=== PATIENT | female | born 1985 | race Hispanic/Latino ===

== ENCOUNTER 2017-12-07 22:14 | Emergency (ER) | payer SELFPAY ==
[2017-12-07] MEDS ORDERED: FLUORESCEIN SODIUM 0.6 MG/WRAP ONE (23:06)
[2017-12-07] MEDS ORDERED: GENTAMICIN 0.3% OPTH DROP 5ML ONE (23:07)
[2017-12-07] MEDS ORDERED: TETRACAINE HCL 0.5% 2ML OPTH ONE (23:10)
--- NOTE | 2017-12-07 23:22 | EDPHYS ---
Physician Documentation [facility] Name: Tessie Cohen Age: 32 yrs Sex: Female : 1985 Arrival Date: 12/07/2017 Time: 22:15 Bed 14 Private MD: ED Physician Elvin Payne HPI: 12/07 22:45 This 32 yrs old Female presents to ER via Ambulatory with complaints of cp Drainage From Eye, Eye Swelling. 22:45 The patient is experiencing matting or discharge, pain, drainage, to the right eye, cp caused by daughter recently diagnosed with conjunctivitis. Onset: The symptoms/episode began/occurred this morning. Duration: the symptoms are continuous. Associated signs and symptoms: Pertinent negatives: ear ache, fever, headache. Patient does not utilize any form of vision correction. Severity of symptoms: in the emergency department the symptoms are unchanged. 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 - Social history:: Smoking status: Patient/guardian denies using tobacco. - Ebola Screening: : No symptoms or risks identified at this time. ROS: 22:50 Constitutional: Negative for body aches, chills, fever, poor PO intake. cp 22:50 ENT: Negative for injury, pain, and discharge. cp 22:50 Eyes: Positive for discharge, foreign body sensation, itching, matting, pain, swelling, of the right eye. 22:50 Cardiovascular: Negative for chest pain, palpitations. 22:50 Respiratory: Negative for cough, shortness of breath, wheezing. 22:50 Skin: Negative for cellulitis, rash. 22:50 All other systems are negative. Exam: 23:05 Visual Acuity: I have reviewed the nursing documentation. cp 23:05 Constitutional: This is a well developed, well nourished patient who is awake, alert, cp and in no acute distress. Head/Face: Normocephalic, atraumatic. 23:05 Eyes: Pupils: equal, round, and reactive to light and accomodation, Extraocular movements: intact throughout, Conjunctiva: mild erythema right eye. Corneas: abrasion, is not appreciated, foreign body, is not appreciated, a fluorescein strip employed to appreciate the findings, Lids and lashes: drainage, from the right eye, mild swelling noted both right upper and lower lids. 23:05 ENT: External ear(s): are unremarkable, Ear canal(s): are normal, clear, TM's: bulging, is not appreciated, bilaterally, dullness, bilaterally, erythema, is not appreciated, bilaterally, Nose: is normal, Mouth: Lips: moist, Oral mucosa: pink and intact, moist, Posterior pharynx: is normal, airway is patent, no erythema, no exudate, Voice: is normal. 23:05 Neck: ROM/movement: is normal, is supple, without pain, no range of motions limitations, no meningismus, no nuchal rigidity, Lymph nodes: no appreciated lymphadenopathy. 23:05 Chest/axilla: Inspection: normal, Palpation: is normal, no crepitus, no tenderness. 23:05 Cardiovascular: Rate: normal, Rhythm: regular. 23:05 Respiratory: the patient does not display signs of respiratory distress, Respirations: normal, Breath sounds: are clear throughout, no decreased breath sounds, no stridor, no wheezing. 23:05 Skin: cellulitis, is not appreciated, no rash present. Vital Signs: 22:37 BP 123 / 72; Pulse 88; Resp 18; Temp 97.8(TE); Pulse Ox 98% on R/A; Weight 77.11 kg; ea Height 5 ft. 3 in. (160.02 cm); Pain 6/10; 22:37 Body Mass Index 30.11 (77.11 kg, 160.02 cm) ea Visual Acuity: 23:12 Left Eye Visual acuity 20/25, Pupil size 4 mm, ; Right Eye Visual acuity 20/70, Pupil bb size 4 mm, ; Both Eyes Visual acuity 20/20; Without Lenses; MDM: 22:27 Patient medically screened. cp 23:20 Data reviewed: vital signs, nurses notes. cp 23:20 Differential diagnosis: Corneal abrasion of Foreign body in Response to treatment: the cp patient's symptoms have mildly improved after treatment, and as a result, I will discharge patient. 12/07 22:42 Order name: Visual Acuity; Complete Time: 23:02 12/07 22:53 Order name: Eye Tray; Complete Time: 23:24 cp 12/07 22:53 Order name: Fluoresene Opth strip; Complete Time: 23:24 cp Administered Medications: 23:34 Drug: Gentamicin Drops 0.3 % 2 drops Route: Ophthalmic; Site: right eye; ea 23:38 Follow up: Response: No adverse reaction ea Disposition: 12/07/17 23:22 Discharged to Home. Impression: Conjunctivitis - Right Eye. - Condition is Stable. - Discharge Instructions: Conjunctivitis (Viral and Bacterial). - Prescriptions for Gentamicin 0.3 % Ophthalmic Drops - instill 1 drop by OPHTHALMIC route every 4 hours for 7 days; 1 bottle. - Work release form, Medication Reconciliation Form, Thank You Letter, Antibiotic Education, Prescription Opioid Use form. - Follow up: Karely Jang MD; When: Tomorrow; Reason: Recheck today's complaints. Follow up: Karely Jang MD; When: 2 - 3 days; Reason: Recheck today's complaints. - Problem is new. - Symptoms have improved. Addendum: 12/11/2017 09:58 Co-signature as Attending Physician, Elvin Payne MD I agree with the assessment and c ponce plan of care. Signatures: Elvin Payne MD MD cha Page, Corey, PA PA cp Antunez, Elena, RN RN ea Corrections: (The following items were deleted from the chart) 12/07 23:38 23:22 12/07/2017 23:22 Discharged to Home. Impression: Conjunctivitis - Right Eye. ea Condition is Stable. Prescriptions for Gentamicin 0.3 % Ophthalmic Drops - instill 1 drop by OPHTHALMIC route every 4 hours for 7 days; 1 bottle. and Forms are Medication Reconciliation Form, Thank You Letter, Antibiotic Education, Prescription Opioid Use. Follow up: Karely Jang; When: 2 - 3 days; Reason: Recheck today's complaints. Problem is new. Symptoms have improved. cp
--- NOTE | 2017-12-07 23:22 | ER ---
Nurse's Notes [facility] Name: Tessie Cohen Age: 32 yrs Sex: Female : 1985 Arrival Date: 12/07/2017 Time: 22:15 Bed 14 Private MD: Diagnosis: Conjunctivitis-Right Eye Presentation: 12/07 22:34 Presenting complaint: Patient states: This morning she noticed her eye was swollen and ea had green crusty discharge. States " It go more painful and throughout the day it just got worse" Reported that her daughter had pink eye earlier this week. Transition of care: patient was not received from another setting of care. Onset of symptoms was December 07, 2017. Risk Assessment: Do you want to hurt yourself or someone else? Patient reports no desire to harm self or others. Initial Sepsis Screen: Does the patient meet any 2 criteria? No. Patient's initial sepsis screen is negative. Does the patient have a suspected source of infection? No. Patient's initial sepsis screen is negative. Care prior to arrival: None. 22:34 Method Of Arrival: Ambulatory ea 22:34 Acuity: WOO 5 ea Triage Assessment: 22:37 General: Appears uncomfortable, Behavior is calm, cooperative, appropriate for age. ea Pain: Complains of pain in right eye. 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 - Social history:: Smoking status: Patient/guardian denies using tobacco. - Ebola Screening: : No symptoms or risks identified at this time. Screenin:45 Abuse screen: Denies threats or abuse. Nutritional screening: No deficits noted. ea Tuberculosis screening: No symptoms or risk factors identified. Fall Risk None identified. Assessment: 23:37 Reassessment: Patient and/or family updated on plan of care and expected duration. Pain ea level reassessed. Patient is alert, oriented x 3, equal unlabored respirations, skin warm/dry/pink. Discharge instructions given to patient, verbalized the understanding of instruction. Patient states feeling better. Patient states symptoms have improved. Vital Signs: 22:37 BP 123 / 72; Pulse 88; Resp 18; Temp 97.8(TE); Pulse Ox 98% on R/A; Weight 77.11 kg; ea Height 5 ft. 3 in. (160.02 cm); Pain 6/10; 22:37 Body Mass Index 30.11 (77.11 kg, 160.02 cm) ea Visual Acuity: 23:12 Left Eye Visual acuity 20/25, Pupil size 4 mm, ; Right Eye Visual acuity 20/70, Pupil bb size 4 mm, ; Both Eyes Visual acuity 20/20; Without Lenses; ED Course: 22:15 Patient arrived in ED. am2 22:27 Elvin Shaw PA is PHCP. cp 22:27 Elvin Payne MD is Attending Physician. cp 22:34 Giselle Trevino RN is Primary Nurse. ea 22:36 Triage completed. ea 22:41 Elvin Shaw PA is PHCP. cp 22:41 Elvin Payne MD is Attending Physician. cp 22:46 Patient has correct armband on for positive identification. Bed in low position. Call ea light in reach. Side rails up X 1. 22:46 Arm band placed on right wrist. Patient placed in an exam room. ea 23:21 Karely Jang MD is Referral Physician. cp 23:21 Referral Physician role handed off by Karely Jnag MD cp 23:21 Karely Jang MD is Referral Physician. cp 23:36 No provider procedures requiring assistance completed. No provider procedures requiring ea assistance completed. Assist provider with eye exam of right eye. using slit lamp, Performed by Elvin COFFEY Patient tolerated well. Patient did not have IV access during this emergency room visit. Administered Medications: 23:34 Drug: Gentamicin Drops 0.3 % 2 drops Route: Ophthalmic; Site: right eye; ea 23:38 Follow up: Response: No adverse reaction ea Outcome: 23:22 Discharge ordered by . cp 23:36 Discharged to home ambulatory. ea 23:36 Condition: improved 23:36 Discharge instructions given to patient, Instructed on discharge instructions, follow up and referral plans. medication usage, Demonstrated understanding of instructions, follow-up care, medications, Prescriptions given X 1. 23:38 Patient left the ED. ea Signatures: Ashley Serrano RN RN bb Page, Corey, PA PA cp Moreno, Amanda am2 Giselle Trevino, RN RN ea
[2017-12-08 00:31] VITALS: BP 123/72; TEMP 97.8; O2SAT 98
== END 2017-12-07 23:38 | disposition home or self-care (01) ==
LOC: ER 22:14
DX: H10.9 Unspecified conjunctivitis (principal)
CPT/HCPCS: 99283

== ENCOUNTER 2018-01-15 12:25 | Emergency (ER) | payer SELFPAY ==
--- NOTE | 2018-01-15 15:01 | EDPHYS ---
Physician Documentation [facility] Name: Tessie Cohen Age: 32 yrs Sex: Female : 1985 Arrival Date: 01/15/2018 Time: 12:27 Bed 11 Private MD: None, None ED Physician Elvin Payne HPI: 01/15 16:31 This 32 yrs old Female presents to ER via Ambulatory with complaints of Sinus snw Congestion, Non-Productive Cough. 16:31 The patient or guardian reports cough, described as moderate. Onset: The snw symptoms/episode began/occurred suddenly, 2 week(s) ago, and became persistent. Severity of symptoms: At their worst the symptoms were moderate. Associated signs and symptoms: Pertinent positives: rhinorrhea. The patient has not experienced similar symptoms in the past. The patient has not recently seen a physician. 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 - Social history:: Smoking status: Patient/guardian denies using tobacco. - Ebola Screening: : No symptoms or risks identified at this time. ROS: 16:32 Eyes: Negative for injury, pain, redness, and discharge. snw 16:32 Neck: Negative for injury, pain, and swelling, Cardiovascular: Negative for chest pain, palpitations, and edema, Abdomen/GI: Negative for abdominal pain, nausea, vomiting, diarrhea, and constipation, Back: Negative for injury and pain, : Negative for injury, bleeding, discharge, and swelling, MS/Extremity: Negative for injury and deformity, Skin: Negative for injury, rash, and discoloration, Neuro: Negative for headache, weakness, numbness, tingling, and seizure. 16:32 Constitutional: Positive for malaise, Negative for fever. 16:32 ENT: Positive for nasal discharge. 16:32 Respiratory: Positive for cough, Negative for shortness of breath, sputum production, wheezing. Exam: 16:28 Constitutional: This is a well developed, well nourished patient who is awake, alert, snw and in no acute distress. Head/Face: Normocephalic, atraumatic. Eyes: Pupils equal round and reactive to light, extra-ocular motions intact. Lids and lashes normal. Conjunctiva and sclera are non-icteric and not injected. Cornea within normal limits. Periorbital areas with no swelling, redness, or edema. Neck: Trachea midline, no thyromegaly or masses palpated, and no cervical lymphadenopathy. Supple, full range of motion without nuchal rigidity, or vertebral point tenderness. No Meningismus. Chest/axilla: Normal chest wall appearance and motion. Nontender with no deformity. No lesions are appreciated. Cardiovascular: Regular rate and rhythm with a normal S1 and S2. No gallops, murmurs, or rubs. Normal PMI, no JVD. No pulse deficits. Abdomen/GI: Soft, non-tender, with normal bowel sounds. No distension or tympany. No guarding or rebound. No evidence of tenderness throughout. Back: No spinal tenderness. No costovertebral tenderness. Full range of motion. Skin: Warm, dry with normal turgor. Normal color with no rashes, no lesions, and no evidence of cellulitis. MS/ Extremity: Pulses equal, no cyanosis. Neurovascular intact. Full, normal range of motion. Neuro: Awake and alert, GCS 15, oriented to person, place, time, and situation. Cranial nerves II-XII grossly intact. Motor strength 5/5 in all extremities. Sensory grossly intact. Cerebellar exam normal. Normal gait. 16:28 ENT: External ear(s): are unremarkable, Ear canal(s): are normal, TM's: are normal, Nose: Nasal mucosa: edematous, nasal drainage, that is moderate, and is seen coming from both nares, that is clear, Mouth: is normal, Posterior pharynx: is normal, Voice: is normal. 16:28 Respiratory: the patient does not display signs of respiratory distress, Respirations: no acute changes, Breath sounds: are clear throughout, bronchitic cough. Vital Signs: 12:48 BP 125 / 80; Pulse 86; Resp 16; Temp 98.2; Pulse Ox 100% on R/A; Pain 8/10; hb 14:43 Temp 98.7(O); rv MDM: 14:40 Patient medically screened. snw 16:29 Data reviewed: vital signs, nurses notes. Data interpreted: Pulse oximetry: on room air snw is 100 %. Interpretation: normal. Counseling: I had a detailed discussion with the patient and/or guardian regarding: the historical points, exam findings, and any diagnostic results supporting the discharge/admit diagnosis, the presence of at least one elevated blood pressure reading (>120/80) during this emergency department visit, lab results, the need for further work-up and treatment in the hospital, to return to the emergency department if symptoms worsen or persist or if there are any questions or concerns that arise at home. Special discussion: I have referred the patient to see his PCP for further evaluation of high blood pressure. Based on the history and exam findings, there is no indication for further emergent testing or inpatient evaluation. I discussed with the patient/guardian the need to see the primary care provider for further evaluation of the symptoms. 01/15 12:30 Order name: Urine Culture snw 01/15 12:30 Order name: Urine Microscopic Only; Complete Time: 15:16 snw 01/15 12:30 Order name: Urine Dipstick-Ancillary (obtain specimen); Complete Time: 14:40 snw 01/15 12:30 Order name: Urine Test (obtain specimen); Complete Time: 14:40 snw 01/15 14:55 Order name: Urine Dipstick--Ancillary (enter results) ss 01/15 14:55 Order name: Urine --Ancillary (enter results) ss Administered Medications: No medications were administered Disposition: 01/16 09:42 Co-signature as Attending Physician, Elvin Payne MD I agree with the assessment and dinesh plan of care. Disposition: 01/15/18 15:01 Discharged to Home. Impression: Bronchitis, not specified as acute or chronic. - Condition is Stable. - Discharge Instructions: Acute Bronchitis, Adult, Hypertension, Cool Mist Vaporizer. - Prescriptions for Flonase Allergy Relief 50 mcg/actuation Nasal spray,suspension - inhale 1 spray by INTRANASAL route once daily; 1 Cartridge. Tessalon Perles 100 mg Oral Capsule - take 1 capsule by ORAL route every 8 hours As needed; 15 capsule. Prednisone 20 mg Oral Tablet - take 2 tablet by ORAL route once daily for 5 days; 10 tablet. - Work release form, Medication Reconciliation Form, Thank You Letter, Antibiotic Education, Prescription Opioid Use form. - Follow up: Private Physician; When: 2 - 3 days; Reason: Recheck today's complaints, Continuance of care, Re-evaluation by your physician. Follow up: Emergency Department; When: As needed; Reason: Worsening of condition. Signatures: Dispatcher [employer] EDElvin Holland, Faiza Ray MD, cha, HONEYCOMB DECAPPER-C HONEYCOMB DECAPPER-Csnw Briana Reyes, RN RN Asim Hardin RN RN rv Corrections: (The following items were deleted from the chart) 01/15 15:24 15:01 01/15/2018 15:01 Discharged to Home. Impression: Bronchitis, not specified as rv acute or chronic. Condition is Stable. Forms are Medication Reconciliation Form, Thank You Letter, Antibiotic Education, Prescription Opioid Use. Follow up: Private Physician; When: 2 - 3 days; Reason: Recheck today's complaints, Continuance of care, Re-evaluation by your physician. Follow up: Emergency Department; When: As needed; Reason: Worsening of condition. snw
--- NOTE | 2018-01-15 15:01 | ER ---
Nurse's Notes [facility] Name: Tessie Cohen Age: 32 yrs Sex: Female : 1985 Arrival Date: 01/15/2018 Time: 12:27 Bed 11 Private MD: None, None Diagnosis: Bronchitis, not specified as acute or chronic Presentation: 01/15 12:46 Presenting complaint: Patient states: Sinus congestion, sore throat, sneezing, runny hb nose, nonproductive cough x 2 weeks. Denies fever/N/V/D. Transition of care: patient was not received from another setting of care. Onset of symptoms was January 15, 2018. Risk Assessment: Do you want to hurt yourself or someone else? Patient reports no desire to harm self or others. Initial Sepsis Screen: Does the patient meet any 2 criteria? No. Patient's initial sepsis screen is negative. Does the patient have a suspected source of infection? No. Patient's initial sepsis screen is negative. Care prior to arrival: Medication(s) given: Claritin at 0730. 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 - Social history:: Smoking status: Patient/guardian denies using tobacco. - Ebola Screening: : No symptoms or risks identified at this time. Screenin:56 Abuse screen: Denies threats or abuse. Denies injuries from another. Nutritional rv screening: No deficits noted. Tuberculosis screening: No symptoms or risk factors identified. Fall Risk None identified. Assessment: 14:43 General: Appears in no apparent distress. comfortable, Behavior is calm, cooperative. rv Pain: Denies pain. Neuro: Level of Consciousness is awake, alert, obeys commands, Oriented to person, place, time, situation. Cardiovascular: Heart tones S1 S2 present. Respiratory: Airway is patent. GI: No signs and/or symptoms were reported involving the gastrointestinal system. : No signs and/or symptoms were reported regarding the genitourinary system. EENT: No signs and/or symptoms were reported regarding the EENT system. Derm: Skin is intact. Vital Signs: 12:48 BP 125 / 80; Pulse 86; Resp 16; Temp 98.2; Pulse Ox 100% on R/A; Pain 8/10; hb 14:43 Temp 98.7(O); rv ED Course: 12:27 Patient arrived in ED. sb2 12:27 None, None is Private Physician. sb2 12:48 Triage completed. hb 12:48 Arm band placed on left wrist. hb 14:29 Faiza Rivera FNP-C is PHCP. snw 14:29 Elvin Payne MD is Attending Physician. snw 14:32 David Daily LVN is Primary Nurse. em 14:43 Urine Culture Sent. rv 14:43 Urine Microscopic Only Sent. rv 14:57 Patient has correct armband on for positive identification. Bed in low position. Call rv light in reach. NIBP on. 15:24 No provider procedures requiring assistance completed. Patient did not have IV access rv during this emergency room visit. Administered Medications: No medications were administered Outcome: 15:01 Discharge ordered by . snw 15:24 Discharged to home ambulatory. rv 15:24 Condition: good 15:24 Discharge instructions given to patient, Instructed on discharge instructions, follow up and referral plans. Prescriptions given X 3. 15:24 Patient left the ED. rv Addendum: 01/18/2018 12:21 Addendum: Culture Results: Positive urine culture. Phone call Attempt #1 attempted to s s call patient at [phone], no answer. Left voicemail. Still no call back at this time. Signatures: Faiza Rivera FNP-C SALES INCENTIVE ANALYST-Csnw David Daily LVN LVN em Smirch, Shelby, RN RN Briana Reyes, RN RN Thelma Corey sb2 Asim Hardin, RN RN rv Corrections: (The following items were deleted from the chart) 12:22 12:16 Addendum: Culture Results: Positive urine culture. Prescription called-in to pharmacy of choice. attempted to call patient at [phone] today, no answer. Left voicemail.
[2018-01-15 15:08] LABS: Urine Bacteria <20 /HPF (<20); Urine Culture Reflex Order NOT NEEDED; Urine RBC <5 /HPF (NONE SEEN)
[2018-01-15 15:44] VITALS: BP 125/80; O2SAT 100
[2018-01-15 15:45] VITALS: TEMP 98.7
[2018-01-15 19:07] LABS: Urine Blood TRACE (NEG); Urine Glucose NEGATIVE (NEG); Urine Protein NEGATIVE (NEG); Urine pH 6.5 (5.0-7.0)
== END 2018-01-15 15:24 | disposition home or self-care (01) ==
LOC: ER 12:25
DX: J40 Bronchitis, not specified as acute or chronic (principal)
CPT/HCPCS: 81003; 81015; 81025; 87077; 87086; 87088; 87186; 99283

== ENCOUNTER 2018-02-12 13:45 | Emergency (ER) | payer SELFPAY ==
[2018-02-12] MEDS ORDERED: NA CHLORIDE 0.9% 1,000 ML ONE (15:15)
[2018-02-12 15:37] LABS: Absolute Lymphocytes (CBC) 1.4 K/uL (0.7-4.9); Absolute Monocytes 0.4 K/uL (0.1-1.3); Absolute Neutrophil 3.9 K/uL (1.8-8.0); Basophils % 0.4 % (0-1.3); Eosinophils % 0.3 % (0-4.4); Lymphocytes % 24.1 % (15.3-44.8); MCH 30.5 pg (27.0-35.0); MCV 89.9 fL (80-100); MPV 7.5 fL (7.6-11.3); RBC Red Blood Cell Count 4.34 M/uL (3.86-4.86)
[2018-02-12 16:10] LABS: Urine Blood TRACE (NEG); Urine Glucose NEGATIVE (NEG); Urine Protein NEGATIVE (NEG)
[2018-02-12 16:32] LABS: ALT/SGPT 20 U/L (12-78); AST/SGOT 20 U/L (15-37); Albumin 3.5 g/dL (3.4-5.0); Alkaline Phosphatase 53 U/L (45-117); BUN Blood Urea Nitrogen 8 mg/dL (7-18); Bicarbonate 25 mmol/L (21-32); Bilirubin Direct < 0.1 mg/dL (0-0.2); Bilirubin Total 0.3 mg/dL (0.2-1.0); Glucose Level 86 mg/dL (74-106); Potassium 3.1 mmol/L (3.5-5.1); Protein, Total 7.6 g/dL (6.4-8.2); Sodium Level 139 mmol/L (136-145)
--- NOTE | 2018-02-12 16:35 | ER ---
Nurse's Notes [facility] Name: Tessie Cohen Age: 32 yrs Sex: Female : 1985 Arrival Date: 02/12/2018 Time: 13:48 Bed 30 Private MD: None, None Diagnosis: Diarrhea, unspecified;Nausea Presentation: 02/12 13:57 Presenting complaint: Patient states: past week I have had diarrhea 4-5 times a day, ch nausea, and cramps. my kids are sick with the same thing at home. Transition of care: patient was not received from another setting of care. Onset of symptoms was February 05, 2018. Risk Assessment: Do you want to hurt yourself or someone else? Patient reports no desire to harm self or others. Initial Sepsis Screen: Does the patient meet any 2 criteria? No. Patient's initial sepsis screen is negative. Does the patient have a suspected source of infection? No. Patient's initial sepsis screen is negative. Care prior to arrival: None. 13:57 Method Of Arrival: Ambulatory 13:57 Acuity: WOO 3 ch Triage Assessment: 13:58 General: Appears in no apparent distress. comfortable, Behavior is calm, cooperative, ch appropriate for age. Pain: Complains of pain in abdomen. Neuro: No deficits noted. GI: Reports lower abdominal pain, upper abdominal pain, diarrhea, nausea. 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 - Social history:: Smoking status: Patient/guardian denies using tobacco. - Ebola Screening: : Patient negative for fever greater than or equal to 101.5 degrees Fahrenheit, and additional compatible Ebola Virus Disease symptoms Patient denies exposure to infectious person Patient denies travel to an Ebola-affected area in the 21 days before illness onset No symptoms or risks identified at this time. Screenin:32 Abuse screen: Denies threats or abuse. Denies injuries from another. Nutritional rv screening: No deficits noted. Tuberculosis screening: No symptoms or risk factors identified. Fall Risk None identified. Assessment: 15:15 General: Appears in no apparent distress. comfortable, Behavior is calm, cooperative. rv 15:15 Pain: Denies pain. Neuro: Level of Consciousness is awake, alert, obeys commands, rv Oriented to person, place, time, situation. Cardiovascular: Capillary refill < 3 seconds. Respiratory: Airway is patent. GI: Abdomen is round non-distended. : No signs and/or symptoms were reported regarding the genitourinary system. EENT: No signs and/or symptoms were reported regarding the EENT system. Derm: Skin is intact. Vital Signs: 13:58 BP 118 / 77; Pulse 82; Resp 16; Temp 98.3; Pulse Ox 99% on R/A; Weight 81.65 kg; Height ch 5 ft. 3 in. (160.02 cm); Pain 10/10; 16:22 BP 116 / 72; Pulse 65; Pulse Ox 100% on R/A; rv 13:58 Body Mass Index 31.89 (81.65 kg, 160.02 cm) ED Course: 13:48 Patient arrived in ED. sb2 13:48 None, None is Private Physician. sb2 13:58 Triage completed. ch 13:58 Arm band placed on left wrist. Patient placed in waiting room. ch 15:05 Angus Zurita NP is PHCP. pm1 15:[address] MD is Attending Physician. pm1 15:15 Inserted saline lock: 20 gauge in right antecubital area, using aseptic technique. rv 15:33 Patient has correct armband on for positive identification. Bed in low position. Call rv light in reach. Side rails up X 1. Adult w/ patient. Pulse ox on. NIBP on. 16:45 No provider procedures requiring assistance completed. IV discontinued, bleeding rv controlled, No redness/swelling at site. Pressure dressing applied. Administered Medications: 15:15 Drug: NS 0.9% 1000 ml Route: IV; Rate: 1000 ml; Site: right antecubital; rv 16:45 Follow up: Response: No adverse reaction; IV Status: Completed infusion rv 16:44 Drug: Potassium Effervescent Tablet 50 mEq Route: PO; rv 16:44 Follow up: Response: Medication administered at discharge. rv 16:45 Drug: Zofran 4 mg Route: IVP; Site: right antecubital; rv 16:45 Follow up: Response: Medication administered at discharge. rv Outcome: 16:35 Discharge ordered by MD. pm1 16:45 Discharged to home ambulatory. rv 16:45 Condition: good 16:45 Discharge instructions given to patient, Instructed on discharge instructions, follow up and referral plans. medication usage, Prescriptions given X 2. 16:46 Patient left the ED. rv Signatures: Candice Enriquez, RN RN Angus Zurita NP DIRECTOR OF INSTITUTIONAL GIVING pm1 Thelma Corey sb2 Asim Hardin RN RN rv
--- NOTE | 2018-02-12 16:35 | EDPHYS ---
Physician Documentation [facility] Name: Tessie Cohen Age: 32 yrs Sex: Female : 1985 Arrival Date: 02/12/2018 Time: 13:48 Bed 30 Private MD: None, None ED Physician Adi Way HPI: 02/12 16:00 This 32 yrs old Female presents to ER via Ambulatory with complaints of pm1 Nausea, Diarrhea. 16:00 The patient presents to the emergency department with nausea, diarrhea, 4-5 episodes pm1 per day for the past 1 week. Onset: The symptoms/episode began/occurred 1 week(s) ago. Possible causes: sick contacts, by family, children with the same symptoms of diarrhea. The symptoms are aggravated by nothing. The symptoms are alleviated by nothing. Associated signs and symptoms: Pertinent negatives: abdominal pain, dysuria, fever, vomiting. The patient has not recently seen a physician. Patient with nausea and diarrhea for the past 7 days. Patient reports that he children have the same symptoms. Patient without any vomiting. PO intake is good. 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 - Social history:: Smoking status: Patient/guardian denies using tobacco. - Ebola Screening: : Patient negative for fever greater than or equal to 101.5 degrees Fahrenheit, and additional compatible Ebola Virus Disease symptoms Patient denies exposure to infectious person Patient denies travel to an Ebola-affected area in the 21 days before illness onset No symptoms or risks identified at this time. ROS: 16:00 Constitutional: Negative for fever, chills, and weight loss, Eyes: Negative for injury, pm1 pain, redness, and discharge, ENT: Negative for injury, pain, and discharge, Neck: Negative for injury, pain, and swelling, Cardiovascular: Negative for chest pain, palpitations, and edema, Respiratory: Negative for shortness of breath, cough, wheezing, and pleuritic chest pain. 16:00 Back: Negative for injury and pain, : Negative for injury, bleeding, discharge, and swelling, MS/Extremity: Negative for injury and deformity, Skin: Negative for injury, rash, and discoloration, Neuro: Negative for headache, weakness, numbness, tingling, and seizure. 16:00 Abdomen/GI: Positive for nausea, diarrhea, Negative for abdominal pain, vomiting, hematemesis, black/tarry stool. Exam: 16:00 Constitutional: This is a well developed, well nourished patient who is awake, alert, pm1 and in no acute distress. Head/Face: Normocephalic, atraumatic. Eyes: Pupils equal round and reactive to light, extra-ocular motions intact. Lids and lashes normal. Conjunctiva and sclera are non-icteric and not injected. Cornea within normal limits. Periorbital areas with no swelling, redness, or edema. ENT: Nares patent. No nasal discharge, no septal abnormalities noted. Tympanic membranes are normal and external auditory canals are clear. Oropharynx with no redness, swelling, or masses, exudates, or evidence of obstruction, uvula midline. Mucous membranes moist. Neck: Trachea midline, no thyromegaly or masses palpated, and no cervical lymphadenopathy. Supple, full range of motion without nuchal rigidity, or vertebral point tenderness. No Meningismus. Chest/axilla: Normal chest wall appearance and motion. Nontender with no deformity. No lesions are appreciated. Cardiovascular: Regular rate and rhythm with a normal S1 and S2. No gallops, murmurs, or rubs. Normal PMI, no JVD. No pulse deficits. Respiratory: Lungs have equal breath sounds bilaterally, clear to auscultation and percussion. No rales, rhonchi or wheezes noted. No increased work of breathing, no retractions or nasal flaring. 16:00 Back: No spinal tenderness. No costovertebral tenderness. Full range of motion. Skin: Warm, dry with normal turgor. Normal color with no rashes, no lesions, and no evidence of cellulitis. MS/ Extremity: Pulses equal, no cyanosis. Neurovascular intact. Full, normal range of motion. 16:00 Abdomen/GI: Inspection: abdomen appears normal, Bowel sounds: normal, Palpation: abdomen is soft and non-tender, in all quadrants, mass, is not appreciated, rebound tenderness, is not appreciated, Indicators: McBurney's point is not tender, Bob's sign is negative. 16:00 Neuro: Orientation: is normal, Motor: is normal, moves all fours. Vital Signs: 13:58 BP 118 / 77; Pulse 82; Resp 16; Temp 98.3; Pulse Ox 99% on R/A; Weight 81.65 kg; Height ch 5 ft. 3 in. (160.02 cm); Pain 10/10; 16:22 BP 116 / 72; Pulse 65; Pulse Ox 100% on R/A; rv 13:58 Body Mass Index 31.89 (81.65 kg, 160.02 cm) ch MDM: 15:06 Patient medically screened. pm1 16:34 Data reviewed: vital signs. Data interpreted: Pulse oximetry: on room air is 100 %. pm1 Interpretation: normal. Counseling: I had a detailed discussion with the patient and/or guardian regarding: the historical points, exam findings, and any diagnostic results supporting the discharge/admit diagnosis, lab results, the need for outpatient follow up, to return to the emergency department if symptoms worsen or persist or if there are any questions or concerns that arise at home. 02/12 15:12 Order name: Basic Metabolic Panel; Complete Time: 16:34 pm1 02/12 15:12 Order name: CBC with Diff; Complete Time: 15:51 pm1 02/12 15:12 Order name: Hepatic Function; Complete Time: 16:34 pm1 02/12 16:01 Order name: Urine Dipstick--Ancillary (enter results); Complete Time: 16:12 bd 02/12 16:01 Order name: Urine --Ancillary (enter results); Complete Time: 16:12 bd 02/12 15:12 Order name: Urine Test (obtain specimen); Complete Time: 16:22 pm1 02/12 15:12 Order name: IV Saline Lock; Complete Time: 15:22 pm1 02/12 15:12 Order name: Labs collected and sent; Complete Time: 15:22 pm1 02/12 15:12 Order name: Urine Dipstick-Ancillary (obtain specimen); Complete Time: 16:22 pm1 Administered Medications: 15:15 Drug: NS 0.9% 1000 ml Route: IV; Rate: 1000 ml; Site: right antecubital; rv 16:45 Follow up: Response: No adverse reaction; IV Status: Completed infusion rv 16:44 Drug: Potassium Effervescent Tablet 50 mEq Route: PO; rv 16:44 Follow up: Response: Medication administered at discharge. rv 16:45 Drug: Zofran 4 mg Route: IVP; Site: right antecubital; rv 16:45 Follow up: Response: Medication administered at discharge. rv Disposition: 02/12/18 16:35 Discharged to Home. Impression: Diarrhea, unspecified, Nausea. - Condition is Stable. - Discharge Instructions: Food Choices to Help Relieve Diarrhea, Adult, Diarrhea, Adult, Nausea, Adult, Viral Gastroenteritis, Adult. - Prescriptions for Lomotil 2.5- 0.025 mg Oral Tablet - take 2 tablet by ORAL route once daily As needed; 20 tablet. Zofran 4 mg Oral Tablet - take 1 tablet by ORAL route every 8 hours As needed; 20 tablet. - Medication Reconciliation Form, Thank You Letter form. - Follow up: Emergency Department; When: As needed; Reason: Worsening of condition. Follow up: Private Physician; When: 2 - 3 days; Reason: Recheck today's complaints, Continuance of care, Re-evaluation by your physician. - Problem is new. - Symptoms have improved. Addendum: 02/15/2018 10:12 Co-signature as Attending Physician, Adi Way MD I agree with the assessment and k dr plan of care. Signatures: Dispatcher [employer] EDCandice Ventura, RN RN Adi Way MD MD [facility] Angus Zurita, SCRATCH FINISHER SCRATCH FINISHER pm1 Asim Hardin RN RN rv Corrections: (The following items were deleted from the chart) 02/12 16:46 16:35 02/12/2018 16:35 Discharged to Home. Impression: Diarrhea, unspecified; Nausea. rv Condition is Stable. Forms are Medication Reconciliation Form, Thank You Letter, Antibiotic Education, Prescription Opioid Use. Follow up: Emergency Department; When: As needed; Reason: Worsening of condition. Follow up: Private Physician; When: 2 - 3 days; Reason: Recheck today's complaints, Continuance of care, Re-evaluation by your physician. Problem is new. Symptoms have improved. pm1
[2018-02-12] MEDS ORDERED: ONDANSETRON 4 MG/2 ML VIAL ONE (16:36)
[2018-02-12] MEDS ORDERED: POTASSIUM 25 MEQ EFFERV TAB ONE (16:43)
[2018-02-12 16:55] VITALS: TEMP 98.3
[2018-02-12 16:56] VITALS: BP 116/72; O2SAT 100
== END 2018-02-12 16:46 | disposition home or self-care (01) ==
LOC: ER 13:45
DX: R19.7 Diarrhea, unspecified (principal)
CPT/HCPCS: 36415; 80048; 80076; 81003; 81025; 85025; 96361; 96374; 99284; J2405; J7030

== ENCOUNTER 2018-04-05 08:47 | Emergency (ER) | payer SELFPAY ==
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
[2018-04-05] MEDS ORDERED: CYCLOBENZAPRINE 10 MG TAB ONE (10:43)
[2018-04-05] MEDS ORDERED: IBUPROFEN 200 MG TAB PO ONE (10:43)
[2018-04-05 10:51] VITALS: TEMP 98.1; O2SAT 100
[2018-04-05 10:52] VITALS: BP 149/91
== END 2018-04-05 10:47 | disposition home or self-care (01) ==
LOC: ER 08:47
DX: S16.1XXA Strain of muscle, fascia and tendon at neck level, initial encounter (principal); V49.59XA Passenger injured in collision with other motor vehicles in traffic accident, initial encounter
CPT/HCPCS: 72125; 99284

== ENCOUNTER 2019-08-23 18:59 | Emergency (ER) | payer SELFPAY ==
--- NOTE | 2019-08-23 19:33 | EDPHYS ---
Physician Documentation [facility] Name: Tessie Cohen Age: 34 yrs Sex: Female : 1985 Arrival Date: 08/23/2019 Time: 19:01 Bed 28 Private MD: ED Physician Jemal Burks HPI: 08/23 19:35 This 34 yrs old Female presents to ER via Ambulatory with complaints of tw4 Dizziness. 19:35 The patient presents with sense of spinning. Onset: The symptoms/episode began/occurred tw4 2 week(s) ago. Context: occurred at home. Modifying factors: The symptoms are alleviated by holding head still, the symptoms are aggravated by movement of head, standing up, changing position. Associated signs and symptoms: The patient has no apparent associated signs or symptoms. The patient has not experienced similar symptoms in the past. 19:35 Severity of symptoms: At their worst the symptoms were moderate in the emergency tw4 department the symptoms have improved. 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 - Social history:: Smoking status: Patient reports the use of cigarette tobacco products, denies chronic smoking, but will smoke occasionally. ROS: 19:35 Constitutional: Negative for fever, chills, and weight loss, Eyes: Negative for injury, tw4 pain, redness, and discharge, Cardiovascular: Negative for chest pain, palpitations, and edema, Respiratory: Negative for shortness of breath, cough, wheezing, and pleuritic chest pain, Abdomen/GI: Negative for abdominal pain, nausea, vomiting, diarrhea, and constipation, MS/Extremity: Negative for injury and deformity, Skin: Negative for injury, rash, and discoloration. 19:35 Neuro: Positive for dizziness, Negative for altered mental status, gait disturbance, headache, hearing loss, loss of consciousness, numbness, seizure activity, speech changes, syncope. Exam: 19:35 Constitutional: This is a well developed, well nourished patient who is awake, alert, tw4 and in no acute distress. Head/Face: Normocephalic, atraumatic. Chest/axilla: Normal chest wall appearance and motion. Nontender with no deformity. No lesions are appreciated. Cardiovascular: Regular rate and rhythm with a normal S1 and S2. No gallops, murmurs, or rubs. Normal PMI, no JVD. No pulse deficits. Respiratory: Lungs have equal breath sounds bilaterally, clear to auscultation and percussion. No rales, rhonchi or wheezes noted. No increased work of breathing, no retractions or nasal flaring. Abdomen/GI: Soft, non-tender, with normal bowel sounds. No distension or tympany. No guarding or rebound. No evidence of tenderness throughout. Back: No spinal tenderness. No costovertebral tenderness. Full range of motion. MS/ Extremity: Pulses equal, no cyanosis. Neurovascular intact. Full, normal range of motion. Neuro: Awake and alert, GCS 15, oriented to person, place, time, and situation. Cranial nerves II-XII grossly intact. Motor strength 5/5 in all extremities. Sensory grossly intact. Cerebellar exam normal. Normal gait. Vital Signs: 19:10 BP 125 / 86; Pulse 70; Resp 17 S; Temp 97.9(TE); Pulse Ox 100% on R/A; Weight 81.65 kg jd3 (R); Height 5 ft. 3 in. (160.02 cm) (R); Pain 8/10; 19:10 Body Mass Index 31.89 (81.65 kg, 160.02 cm) jd3 MDM: 19:14 Patient medically screened. tw4 19:35 Differential diagnosis: cardiac arrhythmia, CVA, generalized weakness, idiopathic tw4 dizziness, near-syncope, vertigo. Data reviewed: vital signs, nurses notes. Counseling: I had a detailed discussion with the patient and/or guardian regarding: the historical points, exam findings, and any diagnostic results supporting the discharge/admit diagnosis. Medication response: meclizine. Response to treatment: and as a result, I will discharge patient. Special discussion: I discussed with the patient/guardian in detail that at this point there is no indication for admission to the hospital. It is understood, however, that if the symptoms persist or worsen the patient needs to return immediately for re-evaluation. Administered Medications: 19:34 Drug: Meclizine 25 mg Route: PO; mg2 Disposition: 08/23/19 19:33 Discharged to Home. Impression: Vertigo of central origin, unspecified ear. - Condition is Stable. - Discharge Instructions: Vertigo. - Prescriptions for Meclizine 25 mg Oral Tablet - take 1 tablet by ORAL route every 8 hours As needed; 30 tablet. Zofran 4 mg Oral Tablet - take 1 tablet by ORAL route every 12 hours As needed; 6 tablet. - Medication Reconciliation Form, Thank You Letter, Antibiotic Education, Prescription Opioid Use form. - Follow up: Private Physician; When: Upon discharge from the Emergency Department; Reason: If symptoms return, Recheck today's complaints, Continuance of care, Re-evaluation by your physician. - Problem is new. - Symptoms have improved. Signatures: Madan Orozco RN RN jd3 Jemal Burks MD MD tw4 Bartolo Feng RN RN mg2 Corrections: (The following items were deleted from the chart) 19:37 19:35 Severity of symptoms: At their worst the symptoms were moderate in the emergency 4 department the symptoms are unchanged 4 19:39 19:33 08/23/2019 19:33 Discharged to Home. Impression: Vertigo of central origin, mg2 unspecified ear. Condition is Stable. Forms are Medication Reconciliation Form, Thank You Letter, Antibiotic Education, Prescription Opioid Use. Follow up: Private Physician; When: Upon discharge from the Emergency Department; Reason: If symptoms return, Recheck today's complaints, Continuance of care, Re-evaluation by your physician. Problem is new. Symptoms have improved. tw4
--- NOTE | 2019-08-23 19:33 | ER ---
Nurse's Notes [facility] Name: Tessie Cohen Age: 34 yrs Sex: Female : 1985 Arrival Date: 08/23/2019 Time: 19:01 Bed 28 Private MD: Diagnosis: Vertigo of central origin, unspecified ear Presentation: 08/23 19:10 Chief complaint: Patient states: "I had been feeling dizzy for the last 3 days. I have jd3 been having on again and off again headaches.". Coronavirus screen: The patient has NOT traveled to [place] in the past 14 days. The patient has NOT had contact with known and/or suspected case of Coronavirus. Proceed with normal triage procedures. Ebola Screen: Patient negative for fever greater than or equal to 101.5 degrees Fahrenheit, and additional compatible Ebola Virus Disease symptoms. Initial Sepsis Screen: Does the patient meet any 2 criteria? No. Patient's initial sepsis screen is negative. Does the patient have a suspected source of infection? No. Patient's initial sepsis screen is negative. Risk Assessment: Do you want to hurt yourself or someone else? Patient reports no desire to harm self or others. 19:10 Method Of Arrival: Ambulatory jd3 19:10 Acuity: WOO 3 jd3 19:35 Onset of symptoms was August 23, 2019. mg2 Triage Assessment: 19:34 General: Appears in no apparent distress. Behavior is calm, cooperative, appropriate mg2 for age. Pain: Denies pain. 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 - Social history:: Smoking status: Patient reports the use of cigarette tobacco products, denies chronic smoking, but will smoke occasionally. Screenin:34 Abuse screen: Denies threats or abuse. Nutritional screening: No deficits noted. mg2 Tuberculosis screening: No symptoms or risk factors identified. Fall Risk None identified. Vital Signs: 19:10 BP 125 / 86; Pulse 70; Resp 17 S; Temp 97.9(TE); Pulse Ox 100% on R/A; Weight 81.65 kg j (R); Height 5 ft. 3 in. (160.02 cm) (R); Pain 8/10; 19:10 Body Mass Index 31.89 (81.65 kg, 160.02 cm) [facility] ED Course: 19:01 Patient arrived in ED. mr 19:12 Triage completed. jd3 19:12 Arm band placed on. jd3 19:14 Jemal Burks MD is Attending Physician. tw4 19:35 Patient has correct armband on for positive identification. Call light in reach. mg2 Administered Medications: 19:34 Drug: Meclizine 25 mg Route: PO; mg2 Outcome: 19:33 Discharge ordered by . tw4 19:39 Patient left the ED. mg2 Signatures: Farnaz Martinez mr OrozcoMadan, RN RN Jemal Alejandro MD MD tw4 Bartolo Feng RN RN mg2 Corrections: (The following items were deleted from the chart) 23:45 19:31 Bartolo Feng RN is Primary Nurse. mg2 mg2
[2019-08-23] MEDS ORDERED: MECLIZINE HCL 12.5 MG TAB ONE (19:36)
[2019-08-23 19:44] VITALS: BP 125/86; TEMP 97.9; O2SAT 100
== END 2019-08-23 19:39 | disposition home or self-care (01) ==
LOC: ER 18:59
DX: H81.4 Vertigo of central origin (principal)
CPT/HCPCS: 99282; J8597

== ENCOUNTER 2020-11-21 16:09 | Emergency (ER) | payer OTHER, SELFPAY ==
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
[2020-11-21] MEDS ORDERED: IBUPROFEN 400 MG TAB ONE (17:58)
[2020-11-21] MEDS ORDERED: IBUPROFEN 200 MG TAB PO ONE (17:58)
[2020-11-21 18:00] VITALS: TEMP 97.4; O2SAT 100
[2020-11-21 18:01] VITALS: BP 121/81
== END 2020-11-21 17:44 | disposition home or self-care (01) ==
LOC: ER 16:09
DX: S00.83XA Contusion of other part of head, initial encounter (principal); S80.01XA Contusion of right knee, initial encounter; S80.02XA Contusion of left knee, initial encounter; V89.2XXA Person injured in unspecified motor-vehicle accident, traffic, initial encounter
CPT/HCPCS: 99284

== ENCOUNTER 2021-02-08 12:02 | Emergency (ER) | payer SELFPAY ==
--- NOTE | 2021-02-08 15:48 | EDPHYS ---
Physician Documentation [facility] Name: Tessie Cohen Age: 35 yrs Sex: Female : 1985 Arrival Date: 02/08/2021 Time: 12:05 Bed Waiting Private MD: ED Physician Lucía Llamas HPI: 02/08 16:26 This 35 yrs old Female presents to ER via Ambulatory with complaints of kb COVID+, Ear Pain, Cough. 16:26 The patient presents with pain, moderate. The complaints affect the right ear and left kb ear. Modifying factors: The symptoms are alleviated by nothing, the symptoms are aggravated by nothing. The patient has not recently seen a physician. 16:26 Onset: The symptoms/episode began/occurred 3 day(s) ago. Associated signs and symptoms: kb Pertinent positives: cough. Severity of symptoms: At their worst the symptoms were moderate in the emergency department the symptoms are unchanged. The patient has not experienced similar symptoms in the past. Historical: - Allergies: 12:14 No Known Allergies; ss - Immunization history:: Client reports having NOT received the Covid vaccine. - Social history:: Smoking status: Patient denies any tobacco usage or history of. ROS: 15:49 Constitutional: Negative for fever, chills, and weight loss. kb 16:25 ENT: Positive for ear pain. kb 16:25 Respiratory: Positive for cough, Negative for dyspnea on exertion, hemoptysis, orthopnea, pleurisy, shortness of breath, sputum production, wheezing. 16:25 All other systems are negative. Exam: 16:25 Constitutional: This is a well developed, well nourished patient who is awake, alert, kb and in no acute distress. Head/Face: Normocephalic, atraumatic. Cardiovascular: Regular rate and rhythm with a normal S1 and S2. No gallops, murmurs, or rubs. No pulse deficits. Respiratory: Respirations even and unlabored. No increased work of breathing, no retractions or nasal flaring. Skin: Warm, dry with normal turgor. Normal color. MS/ Extremity: Pulses equal, no cyanosis. Neurovascular intact. Full, normal range of motion. Neuro: Awake and alert, GCS 15, oriented to person, place, time, and situation. Moves all extremities. Normal gait. Psych: Awake, alert, with orientation to person, place and time. Behavior, mood, and affect are within normal limits. 16:25 ENT: External ear(s): are unremarkable, Ear canal(s): are normal, TM's: erythema, that is moderate, on the left, fluid levels, on the left. Vital Signs: 12:12 Resp 18; Temp 98.0; Weight 83.01 kg; Height 5 ft. 3 in. (160.02 cm); Pain 8/10; ss 12:14 BP 134 / 93; Pulse 94; Pulse Ox 99% on R/A; ss 12:12 Body Mass Index 32.42 (83.01 kg, 160.02 cm) ss MDM: 15:46 Patient medically screened. kb 15:48 Data reviewed: vital signs, nurses notes. Data interpreted: Pulse oximetry: on room air kb is 99 %. Interpretation: normal. Counseling: I had a detailed discussion with the patient and/or guardian regarding: the historical points, exam findings, and any diagnostic results supporting the discharge/admit diagnosis, the need for outpatient follow up, a family practitioner, to return to the emergency department if symptoms worsen or persist or if there are any questions or concerns that arise at home. Administered Medications: 15:53 Drug: Tussionex Pennkinetic ER (chlorpheniramine-hydrocodone) Suspension 5 ml Route: PO; 15:53 Follow up: Response: Medication administered at discharge. hb Disposition: 16:48 Co-signature as Attending Physician, Lucía Llamas I agree with the assessment and plan sp3 of care. Disposition Summary: 02/08/21 15:47 Discharge Ordered Location: Home kb Condition: Stable kb Diagnosis - Otitis media, unspecified, left ear kb Followup: kb - With: Emergency Department - When: As needed - Reason: Worsening of condition Followup: kb - With: Private Physician - When: 2 - 3 days - Reason: Recheck today's complaints, Continuance of care, Re-evaluation by your physician Discharge Instructions: - Discharge Summary Sheet kb - Otitis Media, Adult, [id number] kb Forms: - Medication Reconciliation Form kb - Thank You Letter kb - Antibiotic Education kb - Prescription Opioid Use kb Prescriptions: - Amoxicillin 875 mg Oral Tablet - take 1 tablet by ORAL route every 12 hours for 10 days; 20 tablet; Refills: 0, kb Product Selection Permitted Signatures: Mervat Lee, ON [employer] ANNOUNCER-C ON AIR ANNOUNCER-Ckb Josy Bello, RN RN ss Briana Reyes, RN RN hb Lucía Llamas sp3
--- NOTE | 2021-02-08 15:48 | ER ---
Nurse's Notes [facility] Name: Tessie Cohen Age: 35 yrs Sex: Female : 1985 Arrival Date: 02/08/2021 Time: 12:05 Bed Waiting Private MD: Diagnosis: Otitis media, unspecified, left ear Presentation: 02/08 12:12 Chief complaint: Patient states: L ear pain that began 2-3 days ago. Coronavirus ss screen: Client denies travel out of the [place] in the last 14 days. Ebola Screen: Patient denies exposure to infectious person. Patient denies travel to an Ebola-affected area in the 21 days before illness onset. Initial Sepsis Screen: Does the patient meet any 2 criteria? No. Patient's initial sepsis screen is negative. Does the patient have a suspected source of infection? No. Patient's initial sepsis screen is negative. Risk Assessment: Do you want to hurt yourself or someone else? Patient reports no desire to harm self or others. Onset of symptoms was February 06, 2021. 12:12 Method Of Arrival: Ambulatory ss 12:12 Acuity: WOO 4 ss Historical: - Allergies: 12:14 No Known Allergies; ss - Immunization history:: Client reports having NOT received the Covid vaccine. - Social history:: Smoking status: Patient denies any tobacco usage or history of. Screenin:45 Abuse screen: Denies threats or abuse. Denies injuries from another. hb Assessment: 15:44 General: Appears in no apparent distress. Behavior is calm, cooperative. Pain: Pain hb currently is 8 out of 10 on a pain scale. Neuro: Level of Consciousness is awake, alert, obeys commands, Oriented to person, place, time, situation. Cardiovascular: Patient's skin is warm and dry. Respiratory: Respiratory effort is even, unlabored, Respiratory pattern is regular, symmetrical. EENT: Reports bilateral ear pain. Vital Signs: 12:12 Resp 18; Temp 98.0; Weight 83.01 kg; Height 5 ft. 3 in. (160.02 cm); Pain 8/10; ss 12:14 BP 134 / 93; Pulse 94; Pulse Ox 99% on R/A; ss 12:12 Body Mass Index 32.42 (83.01 kg, 160.02 cm) ss ED Course: 12:05 Patient arrived in ED. mr 12:13 Triage completed. ss 12:14 Arm band placed on right wrist. ss 15:42 Patient's name was called from ER yanira. Unable to locate patient. Will disposition as hb left without being seen by a provider. 15:46 Mervat Lee FNP-C [facility] kb 15:46 Lucía Llamas is Attending Physician. kb Administered Medications: 15:53 Drug: Tussionex Pennkinetic ER (chlorpheniramine-hydrocodone) Suspension 5 ml Route: PO;hb 15:53 Follow up: Response: Medication administered at discharge. hb Outcome: 15:45 Discharged to home ambulatory. hb 15:45 Condition: stable 15:45 Discharge instructions given to patient, Instructed on discharge instructions, follow up and referral plans. medication usage, Demonstrated understanding of instructions, follow-up care, medications, Prescriptions given X 1. 15:47 Discharge ordered by MD. kb 15:53 Patient left the ED. hb Signatures: Mervat Lee FNP-C FNP-Ismael ChristiansenaFarnaz Josy Bello, RN RN Briana Reyes, TAMRA RN hb
[2021-02-08 15:56] VITALS: TEMP 98
[2021-02-08 15:58] VITALS: BP 134/93; O2SAT 99
[2021-02-08] MEDS ORDERED: HYDROCODONE/CHLORPHEN 5 ML/OSYR ONE (16:11)
== END 2021-02-08 15:53 | disposition home or self-care (01) ==
LOC: ER 12:02
DX: H66.92 Otitis media, unspecified, left ear (principal); R05 Cough; Z86.16 Personal history of COVID-19
CPT/HCPCS: 99283